=== PATIENT | female | born 1955 | race Two or more races ===

== ENCOUNTER 2018-05-28 15:05 | Emergency (ER) | payer OTHER ==
[~2018-05-28] VITALS: Ht 154.9 cm; Wt 40.8 kg
[2018-05-28] MEDS ORDERED: RILUZOLE50 MG (15:25)
[2018-05-28] MEDS ORDERED: GLYCOPYRRO0.2 MG/1 M (15:25)
[2018-05-28] MEDS ORDERED: NUEDEXTA 20-101 EACH (15:25)
== END 2018-05-28 19:35 | disposition home or self-care (01) ==
LOC: ER 15:05
DX: S30.0XXA Contusion of lower back and pelvis, initial encounter (principal); W18.39XA Other fall on same level, initial encounter; Y93.89 Activity, other specified; Y92.098 Other place in other non-institutional residence as the place of occurrence of the external cause; Y99.8 Other external cause status